=== PATIENT | female | born 1990 | race Caucasian/White ===

== ENCOUNTER 2023-03-12 20:19 | Emergency (ER) | payer SELFPAY ==
[~2023-03-12] VITALS: Ht 157.5 cm; Wt 87.5 kg
[2023-03-12 20:45] VITALS: BP 134/89
--- NOTE | 2023-03-12 20:52 | NUR ---
TO LOBBY FOLLOWING TRIAGE
--- NOTE | 2023-03-12 21:00 | NUR ---
PT HAS DICOMRFORT ON THE LEFT EYE, SWELLING AND NO REDNESS NOTED.
[2023-03-12] MEDS ORDERED: FLUORESCEIN OPTH STRIP 1 MG OP ONE (21:10)
[2023-03-12] MEDS ORDERED: TETRACAINE HCL/PF 0.5% OPTH 4 ML BTL OP ONE (21:10)
[2023-03-12] MEDS ORDERED: diphenhydrAMINE 50 MG CAP PO ONE (21:30)
[2023-03-12] MEDS ORDERED: IBUPROFEN 600 MG TAB PO ONE (21:30)
[2023-03-12] MEDS ORDERED: DIPH25TA53 PO (22:31)
[2023-03-12] MEDS ORDERED: IBUP-2213 PO (22:31)
[2023-03-12 22:35] VITALS: BP 134/89
--- NOTE | 2023-03-12 23:08 | NUR ---
Patient discharged with v/s stable. Written and verbal after care instructions given and explained. Patient alert, oriented and verbalized understanding of instructions. Ambulatory with steady gait. All questions addressed prior to discharge. ID band removed. Patient advised to follow up with PMD. Rx of DIPHENDYDRAMINE AND IBUPROFEN given. Patient educated on indication of medication including possible reaction and side effects. Opportunity to ask questions provided and answered. PT LEFT HIS BELONIGNS.
== END 2023-03-12 22:35 | disposition home or self-care (01) ==
LOC: MED 20:19
DX: H10.9 Unspecified conjunctivitis (principal); Z79.899 Other long term (current) drug therapy; Z79.1 Long term (current) use of non-steroidal anti-inflammatories (NSAID)
CPT/HCPCS: 99284; Q0163